=== PATIENT | male | born 1990 | race African-American/Black ===

== ENCOUNTER 2025-04-12 21:08 | Emergency (ER) | payer SELFPAY ==
[~2025-04-12] VITALS: Ht 175.3 cm; Wt 83.9 kg
[2025-04-12 21:59] VITALS: PULSE 88; RESP 17; TEMP 98.4; O2SAT 100
== END 2025-04-12 22:00 | disposition home or self-care (01) ==
LOC: ER 21:21
DX: S61.411A Laceration without foreign body of right hand, initial encounter (principal); W26.8XXA Contact with other sharp object(s), not elsewhere classified, initial encounter; Y92.89 Other specified places as the place of occurrence of the external cause
CPT/HCPCS: 99283